=== PATIENT | male | born 1980 | race Hispanic/Latino ===

== ENCOUNTER 2018-03-29 22:11 | Emergency (ER) | payer BC ==
[~2018-03-29] VITALS: Ht 177.8 cm; Wt 131.5 kg
[2018-03-29] MEDS ORDERED: CLINDAMYCIN PHOS 600 MG/ 4 ML VIAL IM ONE (23:45)
[2018-03-29] MEDS ORDERED: HYDROCODONE/APAP 7.5MG-325MG 1 EA TAB PO PRN (23:45)
--- NOTE | 2018-03-30 00:12 | Diagnostic Imaging Report ---
HAND 3+ VIEWS RIGHT Comparison: None Clinical history: ^LACERATION TO PALM, R/O FOREIGN BODY ^[id number] ^[id number] Findings: Soft tissue laceration over the palm of the hand without radiopaque foreign body. No acute fracture or dislocation. Impression: No acute bony abnormality or radiopaque foreign body. Signed by: Dr Claribel Swift MD on 03/30/2018 12:09 AM
[2018-03-30] MEDS ORDERED: LIDOCAINE HCL 1% LOCAL INJ 20 ML VIAL ONE (00:20)
[2018-03-30] MEDS ORDERED: TETANUS/DIPHTHERIA TOX ADULT 0.5 ML SYR ONE (00:55)
[2018-03-30] MEDS ORDERED: NEOMYCIN/POLYMYX/BACITR OINT 0.9 GM PKT ONE (00:55)
[2018-03-30] MEDS ORDERED: TETANUS/DIPHTHERIA TOX ADULT 0.5 ML SYR IM ONE (01:00)
== END 2018-03-30 01:13 | disposition home or self-care (01) ==
LOC: ER 22:11
DX: S61.411A Laceration without foreign body of right hand, initial encounter (principal); V43.52XA Car driver injured in collision with other type car in traffic accident, initial encounter; Y92.488 Other paved roadways as the place of occurrence of the external cause
CPT/HCPCS: 12042; 73130; 90471; 90714; 99283; J2001